=== PATIENT | female | born 1970 | race Hispanic/Latino ===

== ENCOUNTER 2016-07-11 06:08 | Emergency (ER) | payer OTHER ==
[~2016-07-11] VITALS: Ht 157.5 cm; Wt 64.1 kg
[~2016-07-11 06:08] MED LIST: ANUSOL HC,ANUCO25 MG PR; BACTRIM,SEPT1 TABLET PO; CIPRO500 MG PO; COLACE100 MG PO; KEFLEX500 MG PO; MIRALAX17 GM PO; MUPIROCIN22 GM TP; NAPROSYN500 MG PO; NORCO 5/3251 TABLET PO; OMEPRAZOLE20 MG PO; STRATTERA40 MG PO; ULTRACET1 TABLET PO; ZOFRAN4 MG PO
[2016-07-11] MEDS ORDERED: FLEXERIL10 MG PO (06:54)
[2016-07-11] MEDS ORDERED: ULTRAM50 MG PO (06:54)
[2016-07-11 07:23] VITALS: BP 112/80
== END 2016-07-11 07:24 | disposition home or self-care (01) ==
LOC: EME 06:08
DX: S29.012A Strain of muscle and tendon of back wall of thorax, initial encounter (principal); S16.1XXA Strain of muscle, fascia and tendon at neck level, initial encounter
CPT/HCPCS: 99281; 99284

== ENCOUNTER 2017-08-04 17:20 | Emergency (ER) | payer OTHER ==
[~2017-08-04] VITALS: Ht 157.5 cm; Wt 64.9 kg
[~2017-08-04 17:20] MED LIST changes: +AZITHROMYCIN250 MG PO; +FLEXERIL10 MG PO; +SUDAFED 12-HOU120 MG PO; +TESSALON PERLE100 MG PO; +ULTRAM50 MG PO
[2017-08-04] MEDS ORDERED: ULTRACET1 TABLET PO (19:26)
[2017-08-04 19:35] VITALS: BP 127/80
== END 2017-08-04 19:35 | disposition home or self-care (01) ==
LOC: EME 17:20
DX: M25.562 Pain in left knee (principal); Z88.6 Allergy status to analgesic agent; Z88.8 Allergy status to other drugs, medicaments and biological substances; Z91.013 Allergy to seafood; Z91.018 Allergy to other foods
CPT/HCPCS: 73564; 99281; 99284

== ENCOUNTER 2017-08-15 21:07 | Emergency (ER) | payer OTHER ==
[~2017-08-15] VITALS: Ht 157.5 cm; Wt 65.7 kg
[2017-08-15 23:51] VITALS: BP 112/70
== END 2017-08-15 23:52 | disposition home or self-care (01) ==
LOC: EME 21:07
DX: G43.909 Migraine, unspecified, not intractable, without status migrainosus (principal); B34.9 Viral infection, unspecified; Z88.6 Allergy status to analgesic agent; Z91.013 Allergy to seafood; Z91.018 Allergy to other foods; Z88.8 Allergy status to other drugs, medicaments and biological substances
CPT/HCPCS: 99281; 99285; J1200; J1885; J2765; J7030

== ENCOUNTER 2017-10-19 18:18 | Emergency (ER) | payer OTHER ==
[~2017-10-19] VITALS: Ht 157.5 cm; Wt 63.5 kg
[2017-10-19 19:20] LABS: CHLORIDE 98 mEq/L (99-109); POTASSIUM 3.9 mEq/L (3.7-5.4); SODIUM 131 mEq/L (136-147)
[2017-10-19 19:22] LABS: GLUCOSE 95 mg/dL (70-99)
[2017-10-19 19:25] LABS: CREATININE 0.8 mg/dL (0.6-1.3); GFR ESTIMATE (CALCULATED) > 59 mL/min/
[2017-10-19 19:26] LABS: UREA NITROGEN (BUN) 11 mg/dL (9-23)
[2017-10-19 19:34] LABS: QUANTITATIVE HCG < 4.0 MIU/ML
[2017-10-19 22:54] LABS: TOTAL BILIRUBIN 0.8 MG/DL (0.0-1.0)
[2017-10-19] MEDS ORDERED: BACTROBAN NASAL1 G1 BOTH NARES (22:54)
[2017-10-19] MEDS ORDERED: RANITIDINE HCL150 MG PO (22:54)
[2017-10-19] MEDS ORDERED: FLONASE16 G1 BOTH NARES (22:54)
[2017-10-19 23:00] LABS: ALKALINE PHOSPHATASE 57 IU/L (3-129); ALT (GPT) 10 IU/L (3-49); AST (GOT) 17 IU/L (2-34); LIPASE 41 U/L (1.0-51.0); PHOSPHORUS 2.9 mg/dL (2.5-4.9); TOTAL PROTEIN 7.2 G/DL (6.4-8.3)
[2017-10-19 23:17] LABS: CREATINE KINASE 47 IU/L (1-294)
[2017-10-19 23:39] LABS: ALBUMIN 3.6 g/dL (3.2-4.8); CHLORIDE 106 mEq/L (99-109); POTASSIUM 4.3 mEq/L (3.7-5.4)
[2017-10-19 23:41] LABS: GLUCOSE 99 mg/dL (70-99); TOTAL PROTEIN 6.3 g/dL (6.4-8.3)
[2017-10-19 23:45] LABS: ALKALINE PHOSPHATASE 58 IU/L (3-129); CREATININE 0.8 mg/dL (0.6-1.3); GFR ESTIMATE (CALCULATED) > 59 mL/min/
[2017-10-19 23:46] LABS: UREA NITROGEN (BUN) 10 mg/dL (9-23)
[2017-10-19 23:47] LABS: AST (GOT) 12 IU/L (2-34)
[2017-10-19 23:48] LABS: ALT (GPT) 10 IU/L (3-49)
[2017-10-19 23:59] LABS: SODIUM 138 mEq/L (136-147)
[2017-10-20 00:38] VITALS: BP 118/75
[2017-10-20 08:22] LABS: INTACT PARATHYROID HORMONE 25 pg/mL (10-69)
== END 2017-10-20 00:39 | disposition home or self-care (01) ==
LOC: EXP 18:18 → EME 18:18 → EDOF 22:24 → EXP 22:24 → ENRESERV 22:28 → CANRESERV 22:43
PROVIDERS: Physician Assistant; Physician Assistant Medical
DX: E83.51 Hypocalcemia (principal); R11.10 Vomiting, unspecified; J02.9 Acute pharyngitis, unspecified; J06.9 Acute upper respiratory infection, unspecified; F90.9 Attention-deficit hyperactivity disorder, unspecified type; Z88.6 Allergy status to analgesic agent; Z88.8 Allergy status to other drugs, medicaments and biological substances
CPT/HCPCS: 80048; 80053; 82040; 82306; 82310; 82330; 82550; 83690; 83735; 83970; 84100; 84702; 93005; 99281; 99284; J1885; J2405; J7030

== ENCOUNTER 2017-11-01 17:48 | Emergency (ER) | payer OTHER ==
[~2017-11-01] VITALS: Ht 157.5 cm; Wt 63.3 kg
[~2017-11-01 17:48] MED LIST changes: +BACTROBAN NASAL1 G1 BOTH NARES; +FLONASE16 G1 BOTH NARES; +RANITIDINE HCL150 MG PO
[2017-11-01] MEDS ORDERED: AUGMENTIN875 MG PO (20:18)
[2017-11-01 20:37] VITALS: BP 133/91
== END 2017-11-01 20:38 | disposition home or self-care (01) ==
LOC: EME 17:48
DX: H66.91 Otitis media, unspecified, right ear (principal); J32.9 Chronic sinusitis, unspecified; R05 Cough; J02.9 Acute pharyngitis, unspecified; R51 Headache; R42 Dizziness and giddiness
CPT/HCPCS: 99281; 99284